=== PATIENT | female | born 1960 | race Caucasian/White ===

== ENCOUNTER → 2022-05-12 14:37 | Outpatient (CLI) | payer OTHER, SELFPAY ==
--- NOTE | ~2022-05-12 | DEXA_ITS ---
Bone Density Report Name: MAGNUS SILVERMAN Age: 61 Sex: Female Ethnicity: White Date of : 1960 Indication: postmenopausal; screening for osteoporosis; prior fracture; hysterectomy; secondary osteoporosis; Referring Provider: ELMER LONGORIA Study: Bone densitometry was performed. Exam Date: May 12, 2022 Accession number: [id number] Bone Density: Region BMD T-score Z-score Classification AP Spine (L1, L2, L3) 0.879 -1.3 0.4 Osteopenia Femoral Neck (Left) 0.694 -1.4 0.0 Osteopenia Total Hip (Left) 0.870 -0.6 0.6 Normal Femoral Neck (Right) 0.692 -1.4 0.0 Osteopenia Total Hip (Right) 0.836 -0.9 0.3 Normal Total Hip Mean 0.853 -0.8 0.5 Normal World Health Organization criteria for BMD impression classify patients as: Normal (T-score at or above -1.0), Osteopenia (T-score between -1.0 and -2.5), or Osteoporosis (T-score at or below -2.5). 10-year Fracture Risk(1): Major Osteoporotic Fracture 14% Hip Fracture 1.3% Reported Risk Factors: [place] (), Neck BMD=0.692, BMI=23.9, previous fracture, secondary osteoporosis (1) FRAX(R) Version 3.08. Fracture probability calculated for an untreated patient. Fracture probability may be lower if the patient has received treatment. Clinical Information Provided by Patient: Has had a low trauma fracture Has secondary osteoporosis Has used the following medications: Vitamin D, Calcium, synthroid Has the following medical conditions: Hysterectomy, Thyroid cancer, partial hysterectomy Patient maximum height was 61.75 Menopause Age: 28 Drinks caffeinated beverages Onset of menses at age 12 Number of children 3 Impression: The patient has low bone mass, based on the Left Femoral Neck T-score. The patient has an estimated ten-year risk of hip fracture of 1.3% and an estimated ten-year risk of major fracture of 14%, based on the WHO FRAX algorithm. The patient has risk factors, including: previous fracture. Discussion: BONE DENSITY IS LOW AT ONE OR MORE SKELETAL SITES. This patient's lowest T-score is low at one or more skeletal sites. It meets the World Health Organization's (WHO) criteria for ?low bone mass? (T-score between -1.0 and -2.5). The patient's 10-year risk of fracture as calculated by FRAX is less than the threshold where pharmacological therapy is recommended by the National Osteoporosis Foundation (NOF). However, all treatment decisions require clinical judgment and consideration of individual patient factors, including patient preferences, comorbidities, previous drug use, risk factors not captured in the FRAX model (e.g., frailty, falls, vitamin D deficiency, increased bone turnover, interval significant decline in bone density) and possible under or overestimation of fracture risk by FRAX. The patient should follow a healthful
--- NOTE | ~2022-05-12 | MM_ITS ---
EXAMINATION: MM screening kerry BI w jack HISTORY: Screening mammogram TECHNIQUE: Craniocaudal and mediolateral oblique 3-D tomosynthesis images were obtained and synthetic 2-D images were generated. CAD analysis was submitted and interpreted. COMPARISON: No prior mammogram is available for comparison at this institution. BREAST PARENCHYMAL COMPOSITION: There are scattered areas of fibroglandular density. FINDINGS: There is no evidence of suspicious mass, calcification, or architectural distortion to sugg est malignancy in either breast. There has been no suspicious interval change. IMPRESSION: 1. No mammographic evidence of malignancy. 2. Recommend routine screening mammography in one year. BI-RADS Category 1: Negative Reviewed, dictated and finalized at location A. EL SALES CONSULTANT
== END ==
PROVIDERS: PCP Internal Medicine; Visit Provider Internal Medicine
DX: Z12.31 Encounter for screening mammogram for malignant neoplasm of breast (principal); Z78.0 Asymptomatic menopausal state; M85.89 Other specified disorders of bone density and structure, multiple sites
CPT/HCPCS: 77063; 77067; 77080

== ENCOUNTER 2023-09-06 09:55 | Outpatient (CLI) | payer OTHER, SELFPAY | END 2023-09-06 09:56 | disposition home or self-care (01) | LOC: ANHAUDIO 09:56 | PROVIDERS: PCP Internal Medicine; Visit Provider Otolaryngology | DX: H81.13 Benign paroxysmal vertigo, bilateral (principal); H90.3 Sensorineural hearing loss, bilateral; H93.13 Tinnitus, bilateral | CPT/HCPCS: 92557; 92567 ==

== ENCOUNTER 2025-01-12 08:59 | Outpatient (CLI) | payer MEDICARE, SELFPAY ==
--- NOTE | ~2025-01-12 | DEXA_ITS ---
Bone Density Report Name: MAGNUS SILVERMAN Age: 64 Sex: Female Ethnicity: White Date of : 1960 Indication: postmenopausal; screening for osteoporosis; height loss; inflammatory bowel disease; cancer; hysterectomy; Referring Provider: ELMER LONGORIA Study: Bone densitometry was performed. Exam Date: January 12, 2025 Accession number: [id number] Bone Density: Region BMD T-score Z-score Classification AP Spine(L1-L4) 1.056 0.1 1.9 Normal Femoral Neck (Left) 0.716 -1.2 0.4 Osteopenia Total Hip (Left) 0.888 -0.4 0.8 Normal Femoral Neck (Right) 0.680 -1.5 0.0 Osteopenia Total Hip (Right) 0.841 -0.8 0.5 Normal Total Hip Mean 0.864 -0.6 0.7 Normal World Health Organization criteria for BMD impression classify patients as: Normal (T-score at or above -1.0), Osteopenia (T-score between -1.0 and -2.5), or Osteoporosis (T-score at or below -2.5). 10-year Fracture Risk(1): Major Osteoporotic Fracture 9.2% Hip Fracture 1.0% Reported Risk Factors: [place] (), Neck BMD=0.680, BMI=26.8 (1) FRAX(R) Version 3.08. Fracture probability calculated for an untreated patient. Fracture probability may be lower if the patient has received treatment. Clinical Information Provided by Patient: Has used the following medications: Vitamin D, Calcium Has the following medical conditions: Cancer, Inflammatory bowel diseases, Hysterectomy Patient maximum height was 61 Menopause Age: 28 No regular weight bearing exercise Does not regularly consume dairy products Drinks caffeinated beverages Onset of menses at age 12 Number of children 3 Impression: The patient has low bone mass, based on the Right Femoral Neck T-score. The patient has an estimated ten-year risk of hip fracture of 1% and an estimated ten-year risk of major fracture of 9.2%, based on the WHO FRAX algorithm. Discussion: BONE DENSITY IS LOW AT ONE OR MORE SKELETAL SITES. This patient's lowest T-score is low at one or more skeletal sites. It meets the World Health Organization's (WHO) criteria for ?low bone mass? (T-score between -1.0 and -2.5). The patient's 10-year risk of fracture as calculated by FRAX is less than the threshold where pharmacological therapy is recommended by the National Osteoporosis Foundation (NOF). However, all treatment decisions require clinical judgment and consideration of individual patient factors, including patient preferences, comorbidities, previous drug use, risk factors not captured in the FRAX model (e.g., frailty, falls, vitamin D deficiency, increased bone turnover, interval significant decline in bone density) and possible under or overestimation of fracture risk by FRAX. The patient should follow a healthful lifestyle (good nutrition with adequate calcium and vitamin D, and appropriate weight-bearing exercise). Follow-Up: Consider repeating this study in 2 to 3 years to reassess this patient's status, or sooner if there is some new clinical indication. Reported by: SHAWN on 01/12/2025 9:40:00 AM. Reviewed, dictated and finalized at location A.
--- OUTSIDE RECORDS SUMMARY | 2025-01-12 09:02 | XMS_ITS | Clinical Summary ---
Author Organization [facility] Address [address] [place] [address] Care Team Providers Care Telecommunicator Name Role Phone Unavailable Primary Care Provider Unavailabl e Social History Tobacco Use Types Packs/Day Years Used Date Smoking Tobacco: Never Assessed Comments Unknown Sex and Gender Information Value Date Recorded Sex Assigned at Not on file Legal Sex Female 4:34 PM CDT Gender Identity Not on file Sexual Orientation Not on file Plan of Treatment Health Maintenance Due Date Last Done Comments Colorectal Cancer Screening Colonoscopy (10 Years) 1960 Hepatitis C 1976 DTaP, Tdap and Td Vaccines ( 1 - Tdap) 1977 Mammogram Screening 1998 Pneumococcal Vaccine: 50+ Ye ars (1 of 1 - PCV) 2008 Zoster Vaccines (1 of 2) 2008 Dexa Scan (General) 11/07/2023 COVID-19 Vaccine ( - 2023-2 5 season) 2024 RSV Immunization or 60+ Years (1 - 1-dose 75+ series) 2033 Meningococcal B Vaccine Aged Out No l onger eligible based on patient's age to complete this topic Meningococcal Vaccine Aged Out No patria oskar eligible based on patient's age to complete this topic RSV Immunizations Under 20 Months Aged Out No longer eligible based on patient's age to complete this topic
--- OUTSIDE RECORDS SUMMARY | 2025-01-12 09:03 | XMS_ITS | Clinical Summary ---
Author Organization [facility] [employer] Address [address] [facility] [place] [address] Care Team Providers Care Acura Sales Consultant Name Role Phone Anne-Marie Brock APRN-FORM RAISER Unavailable [phone] Source Comments [facility],non-owned Affiliates and Associated Physician Practices is amultiple site organization consisting of ambulatory clinics and hospital sitesin [place], [place], [place] and [place]. This disclosure is being madepursuant to the Care Everywhere program and may not contain all information available regarding this patient. Last updated 18.[facility] Social History Tobacco Use Types Packs/Day Years Used Date Smoking Tobacco: Never Assessed Comments Unknown Sex and Gender Information Value Date Recorded Sex Assigned at Not on file Legal Sex Female 9:23 PM CDT Gender Identity Not on file Sexual Orientation Not on file Plan of Treatment Health Maintenance Due Date Last Done Comments BONE DENSITY TESTING 1960 COLOGUARD (AGES 45-75) - COL ON CA SCREENING 1960 COLON MONITORING 1960 COLONOSCOPY - COLON CA SCREENING 1960 CT COLONOGRAPHY - COLON CA SCREENING 1960 Colorectal Cancer Screening 1960 FIT - COLON CA SCREENING 1960 FLEX SIG - COLON CA SCREENING 1960 LIPID TESTING 1960 MAMMOGRAM 1960 HEPATITIS C SCREENING 11/01/1976 DTAP/TDAP/TD VACCINES (1 - Tdap) 1977 PNEUMOCOCCAL VACCINE 50+ (1 of 1 - PCV) 2008 ZOSTER VACCINE (1 of 2) 2008 COVID-19 VACCINE ( - 2023-2 5 season) 2024 DEPRESSION SCREENING 07/04/2024 INFLUENZA VACCINE (#1) 2025 Respiratory Syncytial Virus (RSV) Vaccine Pt: or over 60 yrs (1 - 1-dose 75+ series) 2033 HEPATITIS B VACCINE Aged Out No longe r eligible based on patient's age to complete this topic HIB VACCINE Aged Out No longer eligi ble based on patient's age to complete this topic HPV VACCINE Aged Out No longer eligi ble based on patient's age to complete this topic MENINGOCOCCAL (Group B) VACC INE SHARED DECISION-MAKING Aged Out No longer eligibl e based on patient's age to complete this topic MENINGOCOCCAL GROUPS A/C/Y/W VACCINE Aged Out No longer eligible b ased on patient's age to complete this topic Care Teams Acura Sales Consultant Relationship Specialty Start Date End Date Anne-Marie Brock, LIQUID FERTILIZER SERVICER-FORM RAISER [address] [place] [id number] PCP - Attributed-[facility] SADE RIBERA P4P 11/01/24
== END 2025-01-12 09:00 | disposition home or self-care (01) ==
LOC: ANHIMG 09:00
PROVIDERS: PCP Internal Medicine; Visit Provider Internal Medicine
DX: M85.852 Other specified disorders of bone density and structure, left thigh (principal); M85.851 Other specified disorders of bone density and structure, right thigh; Z78.0 Asymptomatic menopausal state
CPT/HCPCS: 77080

== ENCOUNTER 2025-01-21 09:00 | Outpatient (CLI) | payer MEDICARE, SELFPAY ==
--- NOTE | ~2025-01-21 | MM_ITS ---
EXAMINATION: MM screening kerry BI w jack HISTORY: Screening TECHNIQUE: Craniocaudal and mediolateral oblique 3-D tomosynthesis images were obtained and synthetic 2-D images were generated. CAD analysis was submitted and interpreted. COMPARISON: Comparison to multiple prior studies sequentially, with oldest reviewed study dated 05/12. BREAST PARENCHYMAL COMPOSITION: There are scattered areas of fibroglandular density. FINDINGS: There is no evidence of suspicious mass, calcification, or architectural distortion to sug gest malignancy in either breast. IMPRESSION: 1. No mammographic evidence of malignancy. 2. Recommend routine screening mammography in one year. BI-RADS Category 1: Negative Reviewed, dictated and finalized at location B.
--- OUTSIDE RECORDS SUMMARY | 2025-01-21 09:05 | XMS_ITS | Clinical Summary ---
Author Organization [facility] Address [address] [place] [address] Care Team Providers Care Floral Merchandiser Name Role Phone Unavailable Primary Care Provider [...]
--- OUTSIDE RECORDS SUMMARY | 2025-01-21 09:05 | XMS_ITS | Patient Health Record ---
Author Organization 1 OF Marissa re[facility] Address [address] [place] [address] Care Team Providers Care Document Scanner Name Role Phone Laura Rosado Primary Care Provider Yelena Orourke [phone] Allergies No Known Allergies Reason For Referral No Information Medications Medication SIG (Take, Route, Frequency, Duration) Notes Start Date End Date Status PROzac Active Synthroid Active Social History Tobacco Use: Social History Observation Description Date Details (start date - stop date) Former Smoker NA - NA Tobacco Control (Standard) Question Answer Notes Tobacco use: Former smoker How long has it been since you last smoked? Shaunaa ter than 10 years Vital Signs Height 61 in 01/09/2025 Weight 135 lbs 01/09/2025 BMI 25.51 kg/m2 01/09/2025 Encounters Encounter Location Date Provider Diagnosis 1 OF [facility] [address] [place] [address] 01/09/2025 Yelena Marques Plan Of Treatment No Information Insurance Providers Payer Name Payer Address Payer Phone Subscriber Number Group Number Insured Name Patient Relationship to Insured Coverage Start Date Coverage End Date [employer] [address] [address] [place] [address] [phone] [id number] MAGNUS SILVERMAN Self - patient is the insured Medical (General) History Medical History History ICD Code Depression Thyroid cancer Surgical History Surgery Date(Month/Year) RT foot surgery - 1st met arthroplasty w / implant 04/2019 LT foot surgery - cheilectomy
--- OUTSIDE RECORDS SUMMARY | 2025-01-21 09:05 | XMS_ITS ---
Author Organization [address] [facility] Address [address] [place] [address] Care Team Providers Care Electric Motor Repairing Supervisor Name Role Phone Laura Rosado Primary Care Provider Yelena Orourke [phone] Allergies No Known Allergies REASON FOR VISIT Foot pain Medications Medication SIG (Take, Route, Frequency, Duration) Notes Start Date End Date Status PROzac Active Synthroid Active Social History Tobacco Use: Social History Observation Description Date Details (start date - stop date) Former Smoker NA - NA Tobacco Control (Standard) Question Answer Notes Tobacco use: Former smoker How long has it been since you last smoked? Grea ter than 10 years Vital Signs Height 61 in 01/09/2025 Weight 135 lbs 01/09/2025 BMI 25.51 kg/m2 01/09/2025 Encounters Encounter Location Date Provider Diagnosis 1 OF [facility] [address] [place] [address] 01/09/2025 Yelena Marques Plan Of Treatment No Information Progress Notes * SAKSHI SILVERMANOB:1960 ([age] yo F)Acc No.[id number]:01/09/2025 Progress Notes Patient: MAGNUS CARDOZO Provider: Carlos Marques DPM :1960 A ge:64 Y S ex:Female Date:01/09/2025 Address:[address] [place] [id number] Pcp:Laura Rosado Subjective: * Chief Complaints: * 1 . Foot pain. * HPI: Elvis Ortiz assisting with visit:: Chart Prep Abhishek solano. HPI/Rooming: Abhishek salinas reason for visit:: New Patient Evaluation: [age] y/o female, referred by her , PTO for painful right great toe joint which has been ongoing since April 2019 when her surgery was done by Dr. Harris and never improved. Patient complains of a sharp, aching pain around 6/10 when stepping down. She states that the pain is constant throughout the day mainly plantar 1st met but also all throughout. Sometimes it will ache severly which can cause her to limp. Patient denies any at home treatments. . * Medical History: D epression, Thyroid cancer. * Surgical History: R T foot surgery - 1st met arthroplasty w/ implant 04/2019, LT foot surgery - cheilectomy . * Family History: N o Family History documented.. * Social History: T obacco Use: T obacco Control (Standard) T obacco use: F ormer smoker H ow long has it been since you last smoked??Greater than 10 years D rugs/Alcohol: D o you smoke marijuana?: Admits. Alcohol use: Social alcohol use. Recreational drugs: Marijuana - daily use. * Medications: T aking PROzac , Taking Synthroid , Medication List reviewed and reconciled with the patient * Allergies: N .K.D.A. Objective: * Vitals: W t:135lbs, Wt-k.24 kg, Ht: 61 in, BMI:25.51Index. * Examination: G eneral Examination: Constitutional / Appearance: N o acute distress , Well nourished, Appropriate personal hygiene. Mental status: C ooperative, Oriented to person, place and time, Mood and affect: normal, Judgement and intellect: normal with appropriate response to questions. Shoes today: s andals. L ower Extremity VASCULAR: : Pulses: D P and PT pulses, palpable, bilateral. Temperature gradient: w arm from proximal to distal, bilateral. Pedal hair: p resent, bilateral. Capillary refill at distal toes l ess than 3 seconds. ? L ower Extremity DERM: : Skin: w ell hydrated , no suspicious lesions, without interdigital maceration, bilateral. L ower Extremity NEURO: : Neurological status: n ormal sensation to sharp/ dull with normal and symmetric muscle tone bilateral. L ower Extremity MSK: : Gait G ait unremarkable with normal posture, propulsion and balance. Left lower extremity inspection and palpation: N o palpable masses or nodules noted.. Right lower extremity inspection and palpation: N o palpable masses or nodules noted. . D iagnostic Studies: : X-rays of right lower extremity: 3 views of right foot: .? Assessment: Plan: * Treatment: * Procedure Codes: 7 3630 X-RAY FOOT (3 views), Modifiers: RT * Preventive Medicine: Counseling: C are goal follow-up plan: BMI counseling provided to patient:?Lifestyle education Screenings: F ALL RISK SCREENING Fall Risk Assessment: N o falls in the past year * Images: * Electronic signature of Tara Marques DPM on 01/21/2025 at 09:05 AM CDT Sign off status: Pending * Provider: Carlos Marques DPM Date: 01/09/2025 Generated for Morgan Sandra/Brandon on: 01/21/2025 09:05 AM CDT History and Physical Notes * HPI (History of Present Illness) Category Sub-Category Detail Notes Category Not es Primary reason for visit: New Patient Evaluation: 64 y/o female, referred by her , PTO for painful right great toe joint which has been ongoing since April 2019 when her surgery was done by Dr. Harris and never improved. Patient complains of a sharp, aching pain around 6/10 when stepping down. She states that the pain is constant throughout the day mainly plantar 1st met but also all throughout. Sometimes it will ache severly which can cause her to limp. Patient denies any at home treatments. SADE assisting with visit: HPI/Rooming: Meri Chart Prep [place] Examination Category Sub-Category Detail Notes Category Not es General Examination Mental status: Cooperative, Oriented to person, place and time, Mood and affect: normal, Judgement and intellect: normal with appropriate response to questions Shoes today: sandals Constitutional / Appearance: No acute di stress , Well nourished, Appropriate personal hygiene Lower Extremity VASCULAR: Pulses: DP and PT pulse s, palpable, bilateral Temperature gradient: warm from proximal to distal, bilateral Pedal hair: present, bilateral Capillary refill at distal toes less rashad n 3 seconds Lower Extremity NEURO: Neurological status: norm al sensation to sharp/ dull with normal and symmetric muscle tone bilateral Lower Extremity MSK: Left lower extremit y inspection and palpation: No palpable masses or nodules noted. Right lower extremity inspec tion and palpation: No palpable masses or nodules noted. Gait Gait unremarkable wi th normal posture, propulsion and balance Diagnostic Studies: X-rays of right lowe r extremity: 3 views of right foot: Lower Extremity DERM: Skin: well hydra [place] , no suspicious lesions, without interdigital maceration, bilateral
--- OUTSIDE RECORDS SUMMARY | 2025-01-21 09:05 | XMS_ITS | Clinical Summary ---
Author Organization [facility] [employer] Address [address] [address] Care Team Providers Care Accounts Payable Administrator Name Role Phone Unavailable Primary Care Provider Unavailabl e Source Comments [facility] [employer],non-[facility] Affiliates and Associated Physician Practices is amultiple site organization consisting of ambulatory clinics and hospital sitesin [place], [place], [place] and [place]. This disclosure is being madepursuant to the Care Everywhere program and may not contain all information available regarding this patient. Last updated 18.[facility] [employer] Social History Tobacco Use Types Packs/Day Years [...]
== END 2025-01-21 09:01 | disposition home or self-care (01) ==
PROVIDERS: PCP Internal Medicine; Visit Provider Internal Medicine
DX: Z12.31 Encounter for screening mammogram for malignant neoplasm of breast (principal)
CPT/HCPCS: 77063; 77067

== ENCOUNTER 2025-04-23 00:13 | Day surgery (SDC) | payer MEDICARE, SELFPAY ==
--- OUTSIDE RECORDS SUMMARY | 2025-04-23 00:16 | XMS_ITS | Clinical Summary ---
Author Organization [facility] [employer] Address [address] [place] [address] Care Team Providers Care Household Manager Name Role Phone Unavailable Primary Care Provider Unavailabl e Source Comments [facility] [employer],non-[facility] Affiliates and Associated Physician Practices is amultiple site organization consisting of ambulatory clinics and hospital sitesin [place], [place], [place] and [place]. This disclosure is being madepursuant to the Care Everywhere program and may not contain all information available regarding this patient. Last updated 18.[facility] [employer] Social History Tobacco Use Types Packs/Day Years [...] 2008 ZOSTER VACCINE (1 of 2) 2008 DEPRESSION SCREENING 07/04/2024 COVID-19 VACCINE (1 - 2023-2 5 season) 2025 INFLUENZA VACCINE (#1) 2025 Respiratory Syncytial Virus [...]
--- OUTSIDE RECORDS SUMMARY | 2025-04-23 00:16 | XMS_ITS | Patient Health Record ---
Author Organization 1 OF [facility] Address [address] [place] [address] Care Team Providers Care Event Sales Representative Name Role Phone Ashlee Laura Primary Care Provider Yelena Orourke Unavailable [phone] Allergies No Known Allergies Reason For Referral No Information Medications Medication SIG (Take, Route, Frequency, Duration) Notes Start Date End Date Status PROzac Active Synthroid Active Social History Tobacco Use: Social History Observation Description Date Details (start date - stop date) Former Smoker NA - NA Social History Tobacco Use: Social Info Question Answer Notes Tobacco Control (Standard) Tobacco use: Former smoker How long has it been since you last smoked? Greater than 10 years Additional Details Category Social Info Options Details Drugs/Alcohol: Do you smoke marijuana? Ad mits Alcohol use: Social alcohol u se Recreational drugs Marijuana - d aily use Problems Problem Type SNOMED Code ICD Code Onset Dates Problem Status W/U Status Risk Notes Problem Acquired hammer toe of right foot (4264211977393 105) Hammertoe of right foot (M20.41) Active confirmed Vital Signs Height 61 in 01/09/2025 Weight 135 lbs 01/09/2025 BMI 25.51 kg/m2 01/09/2025 Encounters Encounter Location Date Provider Diagnosis 1 OF [facility] [address] [place] [address] 01/09/2025 Yelena Marques History of replaceme nt of other joint Z96.698 ; Hammertoe of right foot M20.41 and Right foot pain M79.671 Assessments Encounter Date Diagnosis (ICD Code) Assessment Notes Treatment Notes Treatment Clinical Notes Section Notes 01/09/2025 Hammertoe of right foot (ICD-10 - M20.41) I discussed her hammertoe deformity of the right second toe. I discussed conservative treatment options for the hammertoe. She can use a gel cushion on the toe as needed, if it rubs on the hallux. I also briefly discussed surgical treatment options for the hammertoe. 01/09/2025 History of replacement of other joint (ICD-10 - Z96.698) Patient visit today included a review of medical history, review of systems, physical exam and discussion of exam findings, diagnostic test results, and discussion of diagnoses and treatment options. The patient states that she has had pain since her previous surgery many years ago. I discussed conservative treatment options of resting, icing, topical and oral anti-inflammatory medication as needed for pain. I discussed the importance of trying to wear good supportive shoes. I discussed that orthotics may help to stabilize the first metatarsal phalangeal joint during ambulation. She states that she is unable to wear closed toed shoes and can only wear sandals. She was advised to try to find the most supportive orthopedic sandals to support the first metatarsophalangeal joint during ambulation. I explained that sometimes joint implants in the first metatarsophalangeal joint can fail, and I discussed that the salvage procedure would be a fusion of the first metatarsophalangeal joint. All questions and concerns were addressed. 01/09/2025 Right foot pain (ICD-10 - M79.671) Plan Of Treatment No Information Insurance Providers Payer Name Payer Address Payer Phone Subscriber Number Group Number Insured Name Patient Relationship to Insured Coverage Start Date Coverage End Date [employer] [address] [address] [place] [address] [id number] MAGNUS SILVERMAN Self - patient is the insured Medical (General) History Medical History History ICD Code Depression Thyroid cancer Surgical History Surgery Date(Month/Year) RT foot surgery - 1st met arthroplasty w / implant 04/2019 LT foot surgery - cheilectomy
[2025-04-23 09:10] VITALS: BP 148/81; PULSE 81; RESP 20; TEMP 36.6; O2SAT 100
[2025-04-23] MEDS: LACTATED RINGERS 1,000 ML 150 ML IV CONT (09:25)
--- NOTE | 2025-04-23 09:33 | WPDANESEPPF ---
Anes - Initial Pre Proc Eval Procedure: Operation Date: 04/23/25 10:00 Proposed Procedures p Screening Colonoscopy - Jerod Michel MD Date/Time: 04/23/25 09:33 Surgeon: Jerod Michel MD Pre Op Diagnosis: Screening Patient Data Age: 64 Gender: F Height: Weight: 61.2 kg Last Vital Signs Temp 36.6 C 04/23/25 09:10 Pulse 81 04/23/25 09:10 Resp 20 04/23/25 09:10 BP 148/81 H 04/23/25 09:10 Pulse Ox 100 04/23/25 09:10 O2 Del Method Room Air 04/23/25 09:10 Allergies Allergy/AdvReac Type Severity Reaction Status Date / Time No Known Allergies Allergy Mild Verified 04/23/25 09:07 Home Medications ?Medication ?Instructions ?Recorded ?Confirmed ?Type alprazolam 0.25 mg tablet 0.25 mg PO .COMPLEX PRN anxiety 04/15/25 04/15/25 History fluoxetine 20 mg capsule 20 mg PO QPM 04/15/25 04/15/25 History levothyroxine 100 mcg tablet 100 mcg PO DAILY 04/15/25 04/15/25 History Patient hx anesthesia problems: none Family hx anesthesia problems: none Results Review: All pre-operative results and documents have been reviewed as part of the pre-operative evaluation. [facility] Past Medical History Medical History (Updated 04/23/25 @ 09:33 by Michael Bone MD) Thyroid cancer Surgical History Surgical History (Updated 04/23/25 @ 09:33 by Michael Bone MD) H/O thyroidectomy Social History Social History Substance use type: marijuana Anes - Eval Final PreProcedure Day of Procedure 04/23/25 09:33 Patient weight: normal Heart: regular rate and rhythm Lungs: clear to auscultation Airway: Mallampati scale class II Neurological: alert and oriented Last oral intake: >/= 8 hours ASA classification: II Emergent: no Anesthetic plan: proceed Anesthesia type and monitoring: general GIVS and standard monitoring Results Review: All pre-operative results and documents have been reviewed as part of the pre-operative evaluation. Informed Consent: The patient's anesthetic plan and its attendant risks and benefits were discussed with the patient/family/POA. Questions were solicited and answers provided to the satisfaction of the patient/family/POA.
--- NOTE | 2025-04-23 10:03 | PM.HPGS ---
History of Present Illness History of Present Illness Consent: Risks, benefits, and alternatives have been discussed and questions answered. Patient agrees to proceed with procedure. Chief complaint: Screening Narrative: Su Loza is a 64 year old female here for screening colonoscopy, last one about 7 years ago Review of Systems Review of Systems: All systems reviewed & are unremarkable except as noted in HPI and below PMFSH Past Medical History Medical History (Updated 04/23/25 @ 10:04 by Jerod Michel MD) Colon cancer screening Thyroid cancer Surgical History Surgical History (Updated 04/23/25 @ 09:33 by Michael Bone MD) H/O thyroidectomy Social History Social History Substance use type: marijuana Meds Home Medications and Allergies Home Medications ?Medication ?Instructions ?Recorded ?Confirmed ?Type alprazolam 0.25 mg tablet 0.25 mg PO .COMPLEX PRN anxiety 04/15/25 04/15/25 History fluoxetine 20 mg capsule 20 mg PO QPM 04/15/25 04/15/25 History levothyroxine 100 mcg tablet 100 mcg PO DAILY 04/15/25 04/15/25 History Allergies Allergy/AdvReac Type Severity Reaction Status Date / Time No Known Allergies Allergy Mild Verified 04/23/25 09:07 Vital Signs Vital Signs - 24 hr 04/23/25 09:10 Temperature 97.9 F Pulse Rate 81 Respiratory Rate 20 Blood Pressure 148/81 H Pulse Oximetry 100 Oxygen Delivery Room Air Exam Const: General: comfortable and no acute distress HENMT: Face/Nose/Sinus: Normal nares present Eyes: General: appearance normal, both eyes and all related structures Resp: Auscultation: clear to auscultation bilaterally Cardio: Rate: regular rate Rhythm: regular rhythm GI: Inspection: non-distended GI Palp: Yes Soft to palpation Skin: General skin exam: normal color Extrem: General: normal to inspection Psych: Mental Status: mental status grossly normal Assessment and Plan Assessment and plan (1) Colon cancer screening: Code(s): Z12.11 - Encounter for screening for malignant neoplasm of colon Status: Acute Assessment and Plan: colonoscopy
--- NOTE | 2025-04-23 10:16 | S_PTH ---
PATIENT: Su Loza LOC: [facility]#:[id number] AGE/SX: 64/F ROOM: RE04/23/[address]: Jerod Michel MD : 1960 BED: DIS: 04/23/2025 SPEC #: [id number] RECD: 04/23/25 10:32 STATUS: SAUD REInna #: [id number] LINETTE: 04/23/25 10:[address]: Jerod Michel DEPT: [facility] Surgical RECD BY: Aleksandra Mckeon ENTERED: 04/23/25 10:33 SP TYPE: Surgical OTHR DR: Laura Rosado MD Tissues: A - Colon Polypectomy Procedures: Hematoxylin and Eosin Stain Gross and Microscopic Level 4
[2025-04-23 10:20] VITALS: BP 104/45; PULSE 63; RESP 16; O2SAT 100
[2025-04-23 10:30] VITALS: BP 102/56; PULSE 64; RESP 20; O2SAT 100
[2025-04-23 10:40] VITALS: BP 123/51; PULSE 60; RESP 19; O2SAT 100
== END 2025-04-23 10:52 | disposition home or self-care (01) ==
PROVIDERS: PCP Internal Medicine; Referring Provider Internal Medicine; Visit Provider Internal Medicine Gastroenterology
PROC: 0DJD8ZZ Inspection of Lower Intestinal Tract, Via Natural or Artificial Opening Endoscopic (ICD-10-PCS; CPT 45378; principal; 2025-04-23 10:00)
DX: Z12.11 Encounter for screening for malignant neoplasm of colon (principal); D12.3 Benign neoplasm of transverse colon; K64.8 Other hemorrhoids; F12.90 Cannabis use, unspecified, uncomplicated; Z98.890 Other specified postprocedural states; Z85.850 Personal history of malignant neoplasm of thyroid
CPT/HCPCS: 45385; 88305; J2003; J2704; J7120